=== PATIENT | female | born 1965 | race Caucasian/White ===

== ENCOUNTER 2018-03-19 08:17 | Outpatient (RCR) | payer MEDICAID, SELFPAY | END 2018-04-11 23:59 | LOC: NS 08:17 | PROVIDERS: Family Provider Family Medicine; PCP Family Medicine; Visit Provider Specialist | DX: R69 Illness, unspecified (principal); Z71.3 Dietary counseling and surveillance ==

== ENCOUNTER 2018-07-13 20:42 | Observation (INO) | payer MEDICAID, SELFPAY ==
[2018-07-13 20:43] VITALS: BP 120/62; PULSE 86; RESP 20; TEMP 36.7; O2SAT 93; BMI 41.0
--- NOTE | 2018-07-13 21:03 | EKG12_ITS ---
Test Reason : Blood Pressure : / mmHG Vent. Rate : 080 BPM Atrial Rate : 080 BPM P-R Int : 168 ms QRS Dur : 086 ms QT Int : 366 ms P-R-T Axes : 047 054 038 degrees QTc Int : 422 ms Normal sinus rhythm Possible Left atrial enlargement Low voltage QRS Borderline ECG Confirmed by SARMAD HUYNH, VIBHA ([id number]), news videotape editor WANDY GUTIERREZ ([id number]) on 07/15/2018 1:56:41 PM Referred By: LAWSON Confirmed By:VIBHA BAÑUELOS MD
--- NOTE | 2018-07-13 21:11 | RAD_ITS ---
STUDY: X-RAY CHEST REASON FOR EXAM: Female, 52 years old. Persistent cough, SOB. Recent pneumonia. TECHNIQUE: AP and lateral chest. COMPARISON: 09/18/2016. FINDINGS: There is no pleural effusion. There is hazy opacity in the right lung apex and left upper lobe, consistent with pneumonia. Normal size heart. Normal mediastinum and ezio. Normal visualized pulmonary arteries. Normal visualized aortic arch and descending thoracic aorta. Normal visualized thoracic spine. Normal visualized ribs, clavicles, and shoulders. There is no demonstrated abnormality of the visualized soft tissue structures of the upper abdomen. RAD/Chest PA and Lateral IMPRESSION: Bilateral upper lobe hazy opacities consistent with pneumonia. Electronically Signed: Rain Lipscomb MD at 22:46 EST Tel , Service support ,
[2018-07-13 21:26] VITALS: PULSE 85; RESP 15; TEMP 37.1; O2SAT 91
[2018-07-13 21:28] VITALS: RESP 20
[2018-07-13] MEDS: Albuterol 2.5 MG/3 ML VIAL.NEB. INHALATION ×2 (21:29)
[2018-07-13] MEDS: 0.9% Normal Saline 1,000 ML 150 ML IV (21:29)
[2018-07-13] MEDS: Ipratropium/Albuterol Sulfate 3 ML AMPUL.NEB INHALATION (21:29)
[2018-07-13 21:34] VITALS: O2SAT 93
[2018-07-13 21:39] LABS: Absolute Lymphocyte Count 3.06 X10^3/ul (0.83-4.51); Absolute Neutrophil Count 12.1 X10^3/uL (2.0-7.7); Basophil# 0.07 X10^3/uL; Basophil% 0.4 % (0-1); Eosinophil# 0.35 X10^3/uL; Hematocrit 46.2 % (37-47); Hemoglobin 15.3 g/dl (12.0-15.0); Lymphocyte # 3.06 X10^3/ul (4.0); Lymphocyte % 17.9 % (19-41); Mean Corp Hgb Conc 33.1 g/gl (32-36); Mean Corpuscular Hgb 30.4 pg (27.0-32.0); Mean Corpuscular Volume 91.7 fL (81-99); Mean Platelet Vol. 10.2 fl (6.2-12.0); Monocyte# 1.48 X10^3/uL; Monocyte% 8.6 % (0-10); Neutrophil # 12.12 X10^3/uL (2.7-7.7); Neutrophil % 70.9 % (47-70); POSITIVE COUNT NO; POSITIVE DIFFERENTIAL NO; POSITIVE MORPHOLOGY NO; Platelet Count 309 K/mm3 (150-450); RBC Distribution Width CV 13.9 % (11.6-14.6); RBC Distribution Width SD 46.1 fl (35.1-43.9); Red Blood Count 5.04 M/mm3 (4.2-5.4); White Blood Count 17.1 K/mm3 (4.4-11.0)
[2018-07-13 21:55] LABS: Anion Gap 9 (5-15); BUN 12 mg/dL (7-18); Calcium,Total 9.6 mg/dL (8.5-10.1); Chloride 106 mmol/L (98-107); Creatinine, Serum 1.33 mg/dL (0.55-1.02); EST Glomerular Filtration Rate 45 mL/min (>60); Est Glom Filt Rate - Afr Amer 54 mL/min (>60); Estimated Creatinine Clearance 56.56 ml/min; Glucose 163 mg/dL (74-106); Sodium Level 139 mmol/L (136-145)
--- NOTE | 2018-07-13 22:53 | ED.VISSUMM ---
- ER Visit Summary Date of Service: 07/13/18 Chief Complaint: Cough, shortness of breath History of Present Illness: The patient is a 52 F presents to the emergency department with cough and shortness of breath. The patient has had upper respiratory symptoms for the past 3 weeks. She had seen her primary care in the office. She was diagnosed with bronchitis. She did treatment with doxycycline. She states that since finishing, she is really not felt any better. She is had continued cough. She had exertional dyspnea and lightheadedness. She does smoke and does have history of asthma. She is also had fever and chills. She denies any chest pain. She has had some myalgias and arthralgias. Mother was positive for influenza. Physical Examination: Vital signs reviewed General: Well-nourished, well-developed Head: Normocephalic, atraumatic Eyes: Pupils equal and reactive, extraocular muscles intact Neck, supple, no lymphadenopathy Heart: Regular rate and rhythm Respiratory: No distress, diminished air movement with wheezing throughout Abdomen: Soft, nontender, nondistended, no peritoneal signs Back: Nontender Extremities: Nontender, no edema, no cords Skin: Normal color no rash Neuro: Alert and oriented, no focal or lateralizing deficits Test Results: [] Emergency Department Course and Treatment: The patient was initially hypoxic on arrival. Her pulse ox was 88%. She had diminished air movement. She was given nebulized breathing treatments with some improvement of aeration, but now had significant oxygen requirement of 3 L to keep her pulse ox greater than 92%. Chest x-ray does show bilateral upper lobe infiltrates. She also has a mild leukocytosis of 17,000. Cardiac enzymes are normal. EKG was unremarkable. As the patient has oxygen requirement, has failed outpatient treatment, and has evidence of bilateral pneumonia I do feel that she is going require admission. She was covered with broad-spectrum antibiotics. The patient was discussed with the hospitalist and will be admitted. Treatment Plan: [] Disposition: Admission Impression: 1. Bilateral pneumonia 2. Hypoxia This note was generated with [employer] SERVICESation software. It may contain incorrect words, spelling, and punctuation that were not noted in review of the chart prior to signing ED Disposition - Plan for ED Patient: Chief Complaint: Cough Referrals: Jc Hsu MD [Primary Care Provider] -
--- NOTE | 2018-07-13 23:04 | HP.PCM_ITS ---
Problem List (1) Community acquired pneumonia Status: Acute (2) Cellulitis of leg, right Status: Resolved (3) Total knee replacement status Status: Chronic Qualifiers: Laterality: right Qualified Code(s): Z96.651 - Presence of right artificial knee joint History of Present Illness Date of Admission: 07/13/18 Chief Complaint: shortness of breath The patient is a 52 year old F with a significant history of tobacco abuse asthma; bipolar disorder; diabetes mellitus who presented with 3-week history of persistent shortness of breath. She has shortness of breath at rest. Has shortness of breath increased with mild exertion. Associated with her symptoms is lightheadedness, subjective fever; wheezing and cough. She reports feeling clammy. She had a productive yellow sputum that was light. She denies any sore throat. Further she reports runny nose. About 2 weeks ago she went to PCP who gave her Doxycycline and inhalers. She completed the course of Doxycycline. However her symptoms persisted. At emergency department patient was noted to have leukocytosis with white count of 17.1: She had an elevated creatinine of 1.25. Chest x-ray showed bilateral upper lobe hazy opacities. Her oxygen saturation was 88% on room air. Patient does not use any home oxygen. Reportedly her mother had influenza about a week ago. At emergency department patient was given Solu-Medrol; ceftriaxone and azithromycin. Past Medical History Past Medical History (Chronic Problems): Chronic Problems Total knee replacement status (Chronic) Bipolar disorder (Chronic) Dyslipidemia (Chronic) Primary osteoarthritis of right knee (Chronic) Allergies adhesive tape Allergy (Verified 07/13/18 20:45) blisters mepilex codeine Adverse Reaction (Intermediate, Verified 07/13/18 20:45) Itching acetaminophen [From Vicodin] Adverse Reaction (Verified 07/13/18 20:45) Itching hydrocodone bitartrate [From Vicodin] Adverse Reaction (Verified 07/13/18 20:45) Itching tramadol Adverse Reaction (Verified 07/13/18 20:45) Nausea Home Medications: Ambulatory Orders Medication Instructions Recorded Acetaminophen [Tylenol] 500 - 1,000 mg PO Q6H PRN PRN 04/18/15 Ergocalciferol [Vitamin D] 1,000 unit PO DAILY 04/18/15 Fluoxetine HCl 20 mg PO DAILY 04/18/15 Pravastatin Sodium [Pravachol] 80 mg PO DAILY 04/18/15 Albuterol Inhaler [Ventolin Hfa] 2 puff INHALATION 4X/DAY PRN 04/25/15 Paliperidone [Invega] 9 mg PO QHS 04/25/15 [place] Carbonate [Lithobid] 600 mg PO BID 05/02/15 Fenofibrate [Lofibra] 54 mg PO DAILY 05/09/16 Gabapentin [Neurontin] 800 mg PO BID 05/09/16 Levothyroxine [Synthroid] 75 mcg PO DAILY 05/09/16 Metformin HCl [Metformin HCl ER] 1,000 mg PO DAILY 05/09/16 Chlorpromazine HCl 25 mg PO BID 07/13/18 Losartan Potassium 25 mg PO DAILY 07/13/18 ALPRAZolam [Xanax] 0.5 mg PO 4X/DAY PRN PRN 07/14/18 Benztropine [Cogentin] 1 mg PO BID 07/14/18 Budesonide Aerosol [Pulmicort 0.5 mg INHALATION BID.RT 07/14/18 Respules] Pantoprazole Sodium [Protonix] 20 mg PO DAILY 07/14/18 Surgical History: cholecystectomy, total knee arthroplasty, - - Right ganglion removal: Right hip surgery. 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 Paternal History Items: - - Her father had heart problems and lung cancer. Review of Systems Constitutional: Reports: Chills. Denies: Fever - Subjective, Weight Change HEENT: Reports: Sinus Drainage. Denies: Head Aches Cardiovascular: Denies: Chest Pain, Palpitations Respiratory: Reports: Cough. Denies: Sputum production Gastrointestinal: Denies: Abdominal Pain, Nausea, Vomiting Genitourinary: Denies: Dysuria Musculoskeletal: Denies: Joint Pain, Joint Tenderness Skin: Denies: Rash, Wounds Neurological: Denies: Numbness, Tingling, Focal weakness Psychiatric: Denies: Anxiety, Depression, Homicidal Ideations, Suicidal Ideations Hematologic/ Lymphatic: Denies: Easy Bruising, Easy Bleeding VTE Information - Inpt Only VTE Present on Admission: No VTE Mechan Device Prophylaxis: None VTE Pharm Prophylaxis ordered?: Yes Patient Problems: Active and Suspected Problems Community acquired pneumonia (Acute) - Physical Exam General: Alert, Oriented x3, Cooperative HEENT: Atraumatic, PERRLA, EOMI, Normocephalic Neck: Supple, No JVD, Negative Carotid Bruits Lungs: Wheezes Cardiovascular: Regular rate, No murmurs Abdomen: Bowel Sounds Present, Soft, Non Tender Extremities: No edema, Capillary Refill Less than 3 Seconds Skin: No rashes, No breakdown Musculoskeletal: No Tenderness to Palpation of Joints or Extremities Neurological: Facial Droop, - - Patient with bilateral hand tremors Psych/Mental Status: Normal Affect, Appropriate Vital Signs Temp Pulse Resp BP Pulse Ox 98.7 F 85 20 H 120/62 91 07/13/18 21:26 07/13/18 21:26 07/13/18 21:28 07/13/18 20:43 07/13/18 21:26 Oxygen Delivery Method Room Air Weight: 133.4 kg Body Mass Index (BMI) 41.0 Laboratory Tests Past 24 Hrs 07/13/18 07/13/18 21:25 21:25 WBC 17.1 H RBC 5.04 Hgb 15.3 H Hct 46.2 MCV 91.7 MCH 30.4 MCHC 33.1 RDW 13.9 RDW Differential 46.1 H Plt Count 309 MPV 10.2 Immature Gran % (Auto) 0.200 Neut % (Auto) 70.9 H Lymph % (Auto) 17.9 L [place] % (Auto) 8.6 Eos % (Auto) 2.0 Baso % (Auto) 0.4 Absolute Neuts (auto) 12.1 H Absolute Lymphs (auto) 3.06 Total Counted Not Reportable Sodium 139 Potassium 4.0 Chloride 106 Carbon Dioxide 24.0 Anion Gap 9 BUN 12 Creatinine 1.33 H Estim Creat Clear Calc 56.56 Est GFR (MDRD) Af Amer 54 L Est GFR (MDRD) Non-Af 45 L BUN/Creatinine Ratio 9.0 L Glucose 163 H Calcium 9.6 Troponin I < 0.015 Assessment/Plan All Active Problems Community acquired pneumonia (Acute) Cellulitis of leg, right (Resolved) The patient is a 52 year old F with a significant history of asthma; bipolar disorder; diabetes mellitus who presented with 3-week history of persistent shortness of breath will fill out outpatient treatment with cycling; and noted to have leukocytosis and radiographic evidence of bilateral opacities on x-ray consistent with likely committee acquired pneumonia. Acute hypoxemic respiratory failure secondary to committee acquired pneumonia pneumonia. Blood culture x2 were ordered in the ED. Please follow results. Rapid influenza test was unremarkable. Comprehensive respiratory pathogen panel was ordered. Chest x-ray: Independent review of chest x-ray confirms bilateral opacities. Respiratory Gram stain and culture pending Antibiotics: Patient received ceftriaxone and azithromycin at the ED. Ceftriaxone and azithromycin continued. Patient was started on IV hydration at the emergency department. IV hydration continued. DuoNeb scheduled. Albuterol as needed Legionella antigen screen and Strep antigen ordered Flonase for nasal congestion. Received Solu-Medrol at emergency department. Solu-Medrol continued due to severity of his condition. JAMES Her baseline creatinine is around 0.75 On admission her creatinine was 1.33 Gentle IV hydration with normal saline. BUN over creatinine is 9.0. Likely multifactorial from prerenal secondary to excessive work of breathing from pneumonia; and probably ATN since her BUN over creatinine is less than 20. Avoid nephrotoxic's. Hold losartan Trend BMP. Hypertension On admission her blood pressure was stable. Losartan discontinued because of AK I. Trend blood pressures. Hydralazine PRN ordered. Diabetes mellitus with acute hyperglycemia: On admission blood glucose was 163 which is which is within hospital goal of 140-180. Her blood glucose was in the uncontrolled range. Suspect hyperglycemia secondary to steroids. We will continue home metformin and add a correction scale insulin. Accu-Chek q. before meals at bedtime. History of asthma Steroids and breathing treatment as above. Bipolar Patient was having tremors on examination and reported that it is because of the side effect of lithium. She reports taking Cogentin to counteract the tremors. Cogentin continued. Coral continued. Will check a lithium level. Hypothyroidism Synthroid continued. Depression Prozac continued. DVT prophylaxis Heparin subcutaneous. . Code Visit Inpatient E&M: 74698 Init Hosp L3
[2018-07-13 23:14] VITALS: PULSE 80; RESP 16; TEMP 37.1; O2SAT 93
[2018-07-13] MEDS: Ceftriaxone 1 GM/50 ML BAG IV (23:14)
[2018-07-13 23:21] VITALS: BP 101/45; PULSE 81; RESP 16
[2018-07-13] MEDS: MethylPREDNISolone 125 MG/2 ML Vial IV (23:35)
[2018-07-14 00:11] VITALS: BMI 41.0
[2018-07-14 01:39] VITALS: BP 128/79; PULSE 88; RESP 18; TEMP 36.8; O2SAT 92
[2018-07-14] MEDS: 0.9% Normal Saline 1,000 ML 75 ML IV (01:52)
[2018-07-14 05:47] LABS: Absolute Neutrophil Count 12.8 X10^3/uL (2.0-7.7); Basophil# 0.02 X10^3/uL; Basophil% 0.1 % (0-1); Eosinophil# 0.01 X10^3/uL; Eosinophils% 0.1 % (0-5); Hematocrit 46.1 % (37-47); Hemoglobin 14.9 g/dl (12.0-15.0); Lymphocyte % 7.1 % (19-41); Mean Corp Hgb Conc 32.3 g/gl (32-36); Mean Corpuscular Volume 92.8 fL (81-99); Mean Platelet Vol. 10.2 fl (6.2-12.0); Monocyte# 0.24 X10^3/uL; Monocyte% 1.7 % (0-10); Neutrophil % 90.7 % (47-70); Platelet Count 296 K/mm3 (150-450); RBC Distribution Width CV 13.9 % (11.6-14.6); RBC Distribution Width SD 46.1 fl (35.1-43.9); Red Blood Count 4.97 M/mm3 (4.2-5.4); White Blood Count 14.1 K/mm3 (4.4-11.0)
[2018-07-14] MEDS: Levothyroxine 75 MCG Tablet PO (05:49)
[2018-07-14] MEDS: Heparin Injection (Vial) 5,000 UNIT/ML VIAL 5000 UNIT SC (05:49)
[2018-07-14 05:50] LABS: POSITIVE COUNT NO; POSITIVE DIFFERENTIAL NO; POSITIVE MORPHOLOGY NO
[2018-07-14 06:11] LABS: Anion Gap 13 (5-15); BUN 13 mg/dL (7-18); BUN/Creat Ratio 10.4 RATIO (10-20); Calcium,Total 9.3 mg/dL (8.5-10.1); Chloride 104 mmol/L (98-107); Creatinine, Serum 1.25 mg/dL (0.55-1.02); EST Glomerular Filtration Rate 48 mL/min (>60); Est Glom Filt Rate - Afr Amer 58 mL/min (>60); Estimated Creatinine Clearance 60.18 ml/min; Glucose 348 mg/dL (74-106); Potassium 4.6 mmol/L (3.5-5.1); Sodium Level 137 mmol/L (136-145)
[2018-07-14] MEDS: Ipratropium/Albuterol Sulfate 3 ML AMPUL.NEB INHALATION ×2 (07:16→11:31)
[2018-07-14] MEDS: Budesonide Respules 0.5 MG/2 ML AMPUL.NEB. INHALATION (07:17)
[2018-07-14 07:18] VITALS: PULSE 72; RESP 18; O2SAT 92
[2018-07-14 09:36] VITALS: BP 119/67; PULSE 69; RESP 18; TEMP 36.8; O2SAT 98
[2018-07-14] MEDS: Ceftriaxone 1 GM/50 ML BAG IV (09:39)
[2018-07-14] MEDS: Glucerna Shake 120 ML LIQUID PO ×2 (09:40→14:28)
[2018-07-14] MEDS: Benztropine 2 MG Tablet 1 MG PO (09:41)
[2018-07-14] MEDS: Lithium Carbonate 300mg Capsule 600 MG PO (09:41)
[2018-07-14] MEDS: Fenofibrate 48 MG Tablet PO (09:42)
[2018-07-14] MEDS: FLUoxetine 20 MG Capsule PO (09:42)
[2018-07-14] MEDS: guaiFENesin 1,200 MG Tablet 1200 MG PO (09:42)
[2018-07-14] MEDS: Gabapentin 800 MG Tablet PO (09:42)
[2018-07-14] MEDS: ChlorproMAZINE 25 MG Tablet PO (09:43)
[2018-07-14] MEDS: Pantoprazole Sodium 20 MG Tablet PO (09:47)
[2018-07-14 11:06] VITALS: O2SAT 91
[2018-07-14 11:31] VITALS: PULSE 80; RESP 18; O2SAT 90
--- NOTE | 2018-07-14 11:41 | DCINST_ITS ---
- Discharge Diagnoses Current Active Problems: Current Active and Chronic Problems Community acquired pneumonia (Acute) You will use the following diet at home:: Calorie/Carbohydrate Controlled (specify 1200, 1400, etc) - 1800 calories per day Your food should be the consistency of: Regular Your liquids should be the consistency of: Regular/Thin Discharge Activity: Return to Normal Activity Additional Instructions: Please discontinue use of all nicotine products. Talk to your doctor about assistance with smoking cessation. Allergies/Adverse Reactions: Allergies adhesive tape Allergy (Verified 07/13/18 20:45) blisters mepilex codeine Adverse Reaction (Intermediate, Verified 07/13/18 20:45) Itching acetaminophen [From Vicodin] Adverse Reaction (Verified 07/13/18 20:45) Itching hydrocodone bitartrate [From Vicodin] Adverse Reaction (Verified 07/13/18 20:45) Itching tramadol Adverse Reaction (Verified 07/13/18 20:45) Nausea Medications to take at Discharge Acetaminophen [Tylenol] 500 - 1,000 mg PO Q6H PRN PRN 04/18/15 Ergocalciferol [Vitamin D] 1,000 unit PO DAILY 04/18/15 Fluoxetine HCl 20 mg PO DAILY 04/18/15 Pravastatin Sodium [Pravachol] 80 mg PO DAILY 04/18/15 Albuterol Inhaler [Ventolin Hfa] 2 puff INHALATION 4X/DAY PRN 04/25/15 Paliperidone [Invega] 9 mg PO QHS 04/25/15 [place] Carbonate [Lithobid] 600 mg PO BID 05/02/15 Fenofibrate [Lofibra] 54 mg PO DAILY 05/09/16 Gabapentin [Neurontin] 800 mg PO BID 05/09/16 Levothyroxine [Synthroid] 75 mcg PO DAILY 05/09/16 Metformin HCl [Metformin HCl ER] 1,000 mg PO DAILY 05/09/16 Chlorpromazine HCl 25 mg PO BID 07/13/18 Losartan Potassium 25 mg PO DAILY 07/13/18 ALPRAZolam [Xanax] 0.5 mg PO 4X/DAY PRN PRN 07/14/18 Benztropine [Cogentin] 1 mg PO BID 07/14/18 Budesonide Aerosol [Pulmicort Respules] 0.5 mg INHALATION BID.RT 07/14/18 Pantoprazole Sodium [Protonix] 20 mg PO DAILY 07/14/18 Prednisone See Taper PO DAILY #30 tab.ds.pk 07/14/18 levoFLOXacin tablet [Levaquin tablet] 750 mg PO DAILY #5 tab 07/14/18 The following prescriptions were given: levoFLOXacin tablet [Levaquin tablet] 750 mg PO DAILY #5 tab Prednisone See Taper PO DAILY #30 tab.ds.pk Primary Care Physician: Jc Hsu MD [Primary Care Provider] - Please follow up with your Primary Care Physician in: 1 week Test Results: Test results from this visit will be discussed in further detail at your follow- up appointment, if applicable. Proposed Discharge Date: 07/15/17
[2018-07-14] MEDS: Insulin Lispro 100 UNIT/ML INSULN.PEN SQ (11:58)
[2018-07-14 12:16] LABS: Bedside Glucose 344 mg/dL (70-110)
[2018-07-14 14:25] VITALS: BP 132/67; PULSE 80; RESP 18; TEMP 36.9; O2SAT 93
--- NOTE | 2018-07-14 15:32 | DS.PCM_ITS ---
Discharge Date and Diagnosis - Problem List Patient Problems: Active and Suspected Problems Community acquired pneumonia (Acute) Date of Admission: 07/13/18 Date of Discharge: 07/14/18 - Primary Discharge Diagnosis Active and Suspected Problems Community acquired pneumonia (Acute) JAMES 2/2 pna Tobacco abuse 1/2 ppd Asthma Bipolar HTN DMt2 osteoarthritis HLD - Secondary Discharge Diagnosis Chronic Problems Total knee replacement status (Chronic) Bipolar disorder (Chronic) Dyslipidemia (Chronic) Primary osteoarthritis of right knee (Chronic) Hospital Course and Treatment Imaging Results: RAD/Chest PA and Lateral IMPRESSION: Bilateral upper lobe hazy opacities consistent with pneumonia. Operations: None, - - Right total knee washout, 05/02/2015 Procedures: None Summary of Care Provided: Hospital course: The patient is a 52 year old F past medical history of nicotine abuse who continues to smoke, asthma, bipolar disorder, type 2 diabetes, who presented to the emergency room with chief complaint of shortness of breath worsening over 3 weeks, worse with exertion, with yellow sputum production. She was found to have a high white count at 17,000 and a chest x-ray consistent with bilateral upper lobe pneumonia. She also appeared to have acute kidney injury with a creatinine of 1.33, and a baseline noted to be around 0.75. She had taken a course of doxycycline as an outpatient with no relief. She was admitted to the general medical floor with bilateral pneumonia, community-acquired, and started on Rocephin and azithromycin. She was given IV fluids, and her kidney function began to improve overnight. She initially was given some supplemental oxygen, but was weaned off of it overnight. She was ambulated in the hallway the following morning and maintained saturations of 93% on room air. She felt significantly repacked better and requested to go home. Her white count had significantly improved. She was transitioned to 5 more days of oral Levaquin and discharged home in stable condition. She should follow-up with her PCP in 1-2 weeks. This patient was seen by Jd Longo PA-C under the supervision of Doctor Hall. [] Patient Problems: Active and Suspected Problems Community acquired pneumonia (Acute) - Physical Exam General: Alert, Oriented x3, Cooperative HEENT: Atraumatic, PERRLA, EOMI, Normocephalic Neck: Supple, No JVD, Negative Carotid Bruits Lungs: Diminished, Rales Cardiovascular: Regular rate, No murmurs Abdomen: Bowel Sounds Present, Soft, Non Tender Extremities: No edema, Capillary Refill Less than 3 Seconds Skin: No rashes, No breakdown Musculoskeletal: No Tenderness to Palpation of Joints or Extremities Neurological: Cranial nerves II-XII grossly intact Psych/Mental Status: Anxious, Alert and oriented to time, place, person, mood and affect Vital Signs Temp Pulse Resp BP Pulse Ox 98.4 F 80 18 132/67 H 93 07/14/18 14:25 07/14/18 14:25 07/14/18 14:25 07/14/18 14:25 07/14/18 14:25 Oxygen Flow Rate (L/min) 3 Oxygen Delivery Method Room Air Weight: 294 lb 1.546 oz Body Mass Index (BMI) 41.0 Intake and Output for Last 24 Hours 07/12/18 07/13/18 07/14/18 23:59 23:59 23:59 Intake Total 1263 / 1263 Balance 1263 / 1263 Microbiology Past 72 Hours 07/14/18 04:45 Legionella Antigen - Final Urine, Random Streptococcus pneumoniae Antigen (M - Final 07/13/18 22:55 Influenza Types A,B Direct FA (ANNA) - Final Mucosa - Nose Laboratory Tests Past 24 Hrs 07/13/18 07/13/18 07/14/18 21:25 21:25 05:20 WBC 17.1 H RBC 5.04 Hgb 15.3 H Hct 46.2 MCV 91.7 MCH 30.4 MCHC 33.1 RDW 13.9 RDW Differential 46.1 H Plt Count 309 MPV 10.2 Immature Gran % (Auto) 0.200 Neut % (Auto) 70.9 H Lymph % (Auto) 17.9 L [place] % (Auto) 8.6 Eos % (Auto) 2.0 Baso % (Auto) 0.4 Absolute Neuts (auto) 12.1 H Absolute Lymphs (auto) 3.06 Total Counted Not Reportable Sodium 139 Potassium 4.0 Chloride 106 Carbon Dioxide 24.0 Anion Gap 9 BUN 12 Creatinine 1.33 H Estim Creat Clear Calc 56.56 Est GFR (MDRD) Af Amer 54 L Est GFR (MDRD) Non-Af 45 L BUN/Creatinine Ratio 9.0 L Glucose 163 H Calcium 9.6 Troponin I < 0.015 [place] 0.40 L 07/14/18 07/14/18 05:20 05:20 WBC 14.1 H RBC 4.97 Hgb 14.9 Hct 46.1 MCV 92.8 MCH 30.0 MCHC 32.3 RDW 13.9 RDW Differential 46.1 H Plt Count 296 MPV 10.2 Immature Gran % (Auto) 0.300 Neut % (Auto) 90.7 H Lymph % (Auto) 7.1 L [place] % (Auto) 1.7 Eos % (Auto) 0.1 Baso % (Auto) 0.1 Absolute Neuts (auto) 12.8 H Absolute Lymphs (auto) 1.00 Total Counted Not Reportable Sodium 137 Potassium 4.6 Chloride 104 Carbon Dioxide 20.0 L Anion Gap 13 BUN 13 Creatinine 1.25 H Estim Creat Clear Calc 60.18 Est GFR (MDRD) Af Amer 58 L Est GFR (MDRD) Non-Af 48 L BUN/Creatinine Ratio 10.4 Glucose 348 H Calcium 9.3 Troponin I Bertha POC Glucose 07/14/18 11:53 POC Glucose 344 H Discharge Diet: Low fat/ Low Cholesterol, 1800 Calorie Control Diet, 2000 mg Sodium Diet Discharge Activity: Return to Normal Activity Home Medications: Medications to take at Discharge Acetaminophen [Tylenol] 500 - 1,000 mg PO Q6H PRN PRN 04/18/15 Ergocalciferol [Vitamin D] 1,000 unit PO DAILY 04/18/15 Fluoxetine HCl 20 mg PO DAILY 04/18/15 Pravastatin Sodium [Pravachol] 80 mg PO DAILY 04/18/15 Albuterol Inhaler [Ventolin Hfa] 2 puff INHALATION 4X/DAY PRN 04/25/15 Paliperidone [Invega] 9 mg PO QHS 04/25/15 [place] Carbonate [Lithobid] 600 mg PO BID 05/02/15 Fenofibrate [Lofibra] 54 mg PO DAILY 05/09/16 Gabapentin [Neurontin] 800 mg PO BID 05/09/16 Levothyroxine [Synthroid] 75 mcg PO DAILY 05/09/16 Metformin HCl [Metformin HCl ER] 1,000 mg PO DAILY 05/09/16 Chlorpromazine HCl 25 mg PO BID 07/13/18 Losartan Potassium 25 mg PO DAILY 07/13/18 ALPRAZolam [Xanax] 0.5 mg PO 4X/DAY PRN PRN 07/14/18 Benztropine [Cogentin] 1 mg PO BID 07/14/18 Budesonide Aerosol [Pulmicort Respules] 0.5 mg INHALATION BID.RT 07/14/18 Pantoprazole Sodium [Protonix] 20 mg PO DAILY 07/14/18 Prednisone See Taper PO DAILY #30 tab.ds.pk 07/14/18 levoFLOXacin tablet [Levaquin tablet] 750 mg PO DAILY #5 tab 07/14/18 Following Prescrptions Were Given to Patient: levoFLOXacin tablet [Levaquin tablet] 750 mg PO DAILY #5 tab Prednisone See Taper PO DAILY #30 tab.ds.pk Primary Care Physician: Jc Hsu MD [Primary Care Provider] - Please follow up with your Primary Care Physician in: 1 week Medical Necessity - Tobacco Use Smoking Status: Current every day smoker Tobacco Use: Cigarettes Meaningful Use Info Meaningful Use Diagnoses (Choose all that apply): None applicable
== END 2018-07-14 15:44 | disposition home or self-care (01) ==
LOC: ED 21:49 → MS3 23:55
PROVIDERS: Admitting Provider Hospitalist; Emergency Provider Emergency Medicine; Family Provider Family Medicine; PCP Family Medicine; Visit Provider Internal Medicine
DX: J18.9 Pneumonia, unspecified organism (principal); N17.9 Acute kidney failure, unspecified; F31.9 Bipolar disorder, unspecified; E78.5 Hyperlipidemia, unspecified; M17.11 Unilateral primary osteoarthritis, right knee; Z79.899 Other long term (current) drug therapy; Z79.51 Long term (current) use of inhaled steroids; Z79.84 Long term (current) use of oral hypoglycemic drugs; J45.909 Unspecified asthma, uncomplicated; F17.210 Nicotine dependence, cigarettes, uncomplicated; J96.01 Acute respiratory failure with hypoxia; I10 Essential (primary) hypertension; E11.65 Type 2 diabetes mellitus with hyperglycemia; E03.9 Hypothyroidism, unspecified
CPT/HCPCS: 36415; 71046; 80048; 80178; 82962; 84484; 85025; 87040; 87449; 87633; 87804; 93005; 94640; 94667; 96361; 96365; 96366; 96367; 96375; 99218; 99283; 99406; J7030; A4216; G0378

== ENCOUNTER → 2019-11-08 15:57 | Outpatient (CLI) | payer MEDICAID, OTHER, SELFPAY ==
[2018-07-14 00:11] VITALS: BMI 41.0
[2019-11-09 09:30] LABS: Creatinine, Serum 0.92 mg/dL (0.55-1.02); EST Glomerular Filtration Rate 68 mL/min (>60); Est Glom Filt Rate - Afr Amer 82 mL/min (>60)
== END ==
PROVIDERS: PCP Family Medicine; Referring Provider Psychiatry & Neurology Psychiatry; Visit Provider Psychiatry & Neurology Psychiatry
DX: Z79.899 Other long term (current) drug therapy (principal)
CPT/HCPCS: 36415; 80178; 82565; 82570; 84443

== ENCOUNTER 2022-12-22 15:30 | Emergency (ER) | payer MEDICARE, MEDICAID, OTHER, SELFPAY ==
[2022-12-22 15:31] VITALS: BP 125/75; PULSE 82; RESP 13; TEMP 36.8; O2SAT 95; BMI 27.1
--- NOTE | 2022-12-22 15:49 | EKG12_ITS ---
Test Reason : NEUROSYM Blood Pressure : / mmHG Vent. Rate : 084 BPM Atrial Rate : 084 BPM P-R Int : 146 ms QRS Dur : 082 ms QT Int : 376 ms P-R-T Axes : 026 050 031 degrees QTc Int : 444 ms Normal sinus rhythm Normal ECG Confirmed by RIAT HUYNH, JON ([id number]), advertising editor LUIZ HERNÁNDEZ ([id number]) on 12/24/2022 11:24:45 AM Referred By: Confirmed By:JON SALINAS MD
--- NOTE | 2022-12-22 15:51 | EX.ED.DYSGE1 ---
HPI History of Present Illness Chief Complaint: Syncope Narrative Narrative: Patient presents after syncopal episode she tried to get up and was quite lightheaded and then passed out. She did not have any chest pain or shortness of breath. She has no urinary symptoms. No head injury. No recent fevers or chills. She has chronic dyspnea secondary to her COPD. This is unchanged. She does say that she has had decreased p.o. intake recently because she did not feel hungry. She does not have abdominal pain nausea vomiting or diarrhea. No back pain or tearing sensation. No lower extremity edema or calf pain. [facility] Medical History (Updated 12/22/22 @ 17:[address] Andrea Zee MD) CHF (congestive heart failure) COPD (chronic obstructive pulmonary disease) Diabetes TIA (transient ischemic attack) Home Medications acetaminophen 500 mg tablet 500 - 1,000 mg PO Q6H PRN PRN Pain 04/18/15 [History Last Taken 07/13/18 08:00 1000 mg] ergocalciferol (vitamin D2) 1,250 mcg (50,000 unit) capsule (Vitamin D2) 1,000 unit PO DAILY supplement 04/18/15 [History Last Taken 07/13/18 08:00 1000 mg] fluoxetine 20 mg tablet 20 mg PO DAILY mood disorder 04/18/15 [History Last Taken 07/13/18 08:00 20 mg] pravastatin 10 mg tablet 80 mg PO DAILY cholesterol 04/18/15 [History Last Taken 07/13/18 08:00 80 mg] albuterol sulfate 90 mcg/actuation aerosol inhaler (Ventolin HFA) 2 puff inhalation 4X/DAY PRN Wheezing 04/25/15 [History Last Taken 07/13/18 09:00 2 puffs] paliperidone 3 mg tablet,extended release 24 hr (Invega) 9 mg PO QHS bi-polar 04/25/15 [History Last Taken 07/12/18 22:00 9 mg] lithium carbonate 300 mg tablet,extended release 600 mg PO BID bi-polar 05/02/15 [History Last Taken 07/13/18 08:00 600 mg] fenofibrate 54 mg tablet (Lofibra) 54 mg PO DAILY cholesterol 05/09/16 [History Last Taken 07/13/18 08:00 54 mg] gabapentin 800 mg tablet 800 mg PO BID neuropathy 05/09/16 [History Last Taken 07/13/18 08:00 800 mg] levothyroxine 50 mcg tablet 75 mcg PO DAILY thyroid 05/09/16 [History Last Taken 07/13/18 06:00 75 mcg] metformin 500 mg 24 hr tablet,extended release 1,000 mg PO DAILY dm 05/09/16 [History Last Taken 07/13/18 08:00 1000 mg] chlorpromazine 10 mg tablet 25 mg PO BID bi-polar 07/13/18 [History Last Taken 07/13/18 08:00 25 mg] losartan 25 mg tablet 25 mg PO DAILY bp 07/13/18 [History Last Taken 07/13/18 08:00 25 mg] alprazolam 0.5 mg tablet 0.5 mg PO 4X/DAY PRN PRN Anxiety 07/14/18 [History Last Taken 07/13/18 17:00 0.5mg] benztropine 2 mg tablet 1 mg PO BID tremors 07/14/18 [History Last Taken 07/13/18 08:00 1 mg] budesonide 0.5 mg/2 mL suspension for nebulization 0.5 mg inhalation BID.RT breathing 07/14/18 [History Last Taken 07/13/18 12:00 1 tx] levofloxacin 750 mg tablet 750 mg PO DAILY #5 tabs 07/14/18 [Rx Last Taken Unknown] pantoprazole 20 mg tablet,delayed release 20 mg PO DAILY gerd 07/14/18 [History Last Taken 07/13/18 08:00 20 mg] prednisone 10 mg tablets in a dose pack See Taper PO DAILY ##30 07/14/18 [Rx Last Taken Unknown] Allergy/AdvReac Type Severity Reaction Status Date / Time adhesive tape Allergy blisters Verified 12/22/22 15:38 codeine AdvReac Intermediate Itching Verified 12/22/22 15:38 acetaminophen [From Vicodin] AdvReac Itching Verified 12/22/22 15:38 hydrocodone bitartrate AdvReac Itching Verified 12/22/22 15:38 [From Vicodin] tramadol AdvReac Nausea Verified 12/22/22 15:38 Surgical History (Updated 12/22/22 @ 15:40 by Alecia Bell) History of bilateral knee replacement History of cholecystectomy History of hysterectomy Social History Smoking Status: Current every day smoker tobacco type: cigarettes ROS ROS ED ROS Narrative Past medical history: Reviewed Medications: Reviewed Social history: Noncontributory Review of systems: All systems negative except as indicated General: No fever. Syncope as in HPI Eyes: No visual changes ENT: No upper airway congestion, normal voice Neck: No neck pain Cardiovascular: No chest pain Respiratory: Chronic dyspnea no change in cough Gastrointestinal: No abdominal pain, nausea vomiting or diarrhea Genitourinary: No dysuria Musculoskeletal: Denies myalgias no difficulty with ambulation Skin: No rash Neurological: No memory loss, confusion or any focal weakness Psych: No recent behavioral changes Hematologic: No easy bleeding or easy bruising EXAM Physical Exam Narrative Exam Narrative: Physical exam General: She appears comfortable she does not appear in any distress Head: Normocephalic, Atraumatic Eyes: Conjunctiva not pale ENT: Dry mucous membranes Neck: Supple, Nontender, No lymphadenopathy Cardiovascular: Regular rate, Regular rhythm. No murmur Respiratory: No distress, coarse breath sounds bilaterally no obvious wheezing at this time. Abdomen: Soft, Nontender, Nondistended Back: Nontender, Normal Inspection. Negative for: CVA tenderness Extremities: Nontender, No edema Skin: Normal color, No rash Neurological: Alert, Normal Strength, Normal Sensation Const Vital Signs: 12/22/22 15:31 12/22/22 15:40 Temperature 98.2 F Temperature Source Oral Pulse Rate 82 Respiratory Rate 13 Respiratory Effort Normal Non-Labored Respiratory Pattern Normal Blood Pressure 125/75 H Blood Pressure Mean 91 Pulse Ox 95 Oxygen Delivery Method Room Air MDM MDM MDM Narrative Medical decision making narrative: Independent interpretation: Sinus rhythm with a rate in the 80s without ectopy on the monitor. I talked to EMS who gave me some history. Patient had an unremarkable work-up she has chronic leukocytosis which is relatively unchanged. She improved with IV fluids. At this time there is no evidence of any arrhythmia she has no chest pain. No thromboembolic risk factors or signs or symptoms. EKG does not show any risks for sudden arrhythmias. I believe her syncope was either vasovagal or dehydration or both. She appears well, she wants to be discharged which is quite reasonable. I will discharge her. However I do want her to see cardiology I will refer she may need an outpatient echocardiogram. If anything changes she is to return she understands this. At this time we talked about admission she would prefer not to be admitted, I do not believe she needs criteria. Lab Data Labs: Laboratory Results - last 24 hr 12/22/22 12/22/22 12/22/22 15:55 15:55 16:34 WBC 15.2 H RBC 5.39 Hgb 16.3 H Hct 47.2 H MCV 87.6 MCH 30.2 MCHC 34.5 RDW Std Deviation 40.5 RDW Coeff of Yesi 12.7 Plt Count 325 MPV 9.9 Immature Gran % (Auto) 0.300 Neut % (Auto) 50.8 Lymph % (Auto) 39.3 [place] % (Auto) 7.0 Eos % (Auto) 2.1 Baso % (Auto) 0.5 Absolute Neuts (auto) 7.8 H Absolute Lymphs (auto) 5.98 H Nucleated RBC % 0 Differential Comment SCANNED Sodium 136 Potassium 4.6 Chloride 105 Carbon Dioxide 25.0 Anion Gap 6 BUN 13 Creatinine 0.98 Estim Creat Clear Calc 72.50 Est GFR (MDRD) Af Amer 76 Est GFR (MDRD) Non-Af 62 BUN/Creatinine Ratio 13.2 Glucose 176 H Calcium 9.2 Total Bilirubin 0.40 AST 34 ALT 37 Alkaline Phosphatase 94 Troponin I High Sens 4 Total Protein 7.3 Albumin 3.5 Globulin 3.8 Albumin/Globulin Ratio 0.9 Lipase 48 Urine Color Yellow Urine Clarity Clear Urine pH 6.5 Ur Specific [employer] 1.015 Urine Protein Negative Urine Glucose (UA) Normal Urine Ketones Negative Urine Occult Blood Negative Urine Nitrite Negative Urine Bilirubin Negative Urine Urobilinogen Normal Ur Leukocyte Esterase Negative Urine RBC 0 SEEN Urine WBC 0 SEEN Ur Squamous Epith Cells 0-5 SEEN Urine Bacteria 0 SEEN Urine Mucus 0 SEEN Radiography Diagnostic Testing: Clinical Impression(s) from Imaging Studies Chest X-Ray 12/22/22 16:04 IMPRESSION: Normal x-ray examination of the chest. Electronically Signed: Silvestre Malhotra MD at 16:21 EDT , EKG Initial EKG: Comments: Sinus rhythm with a rate of 84. Normal NM and QTc intervals. No ischemic changes. Normal EKG. No evidence of Brugada or LVH or WPW. Interpreted by emergency doctor Discharge Plan Triage Chief Complaint: Syncope ED Provider: Andrea Zee Dx/Rx/DC Orders Clinical Impression: Acute dehydration, Syncope Instructions: Causes of Syncope, Dehydration Prescriptions: No Action acetaminophen 500 MG tablet 500 - 1,000 mg PO Q6H PRN PRN (Reason: Pain) Label Comments: PAIN/FEVER pravastatin 10 MG tablet 80 mg PO DAILY Label Comments: CHOLESTEROL fluoxetine 20 MG tablet 20 mg PO DAILY Label Comments: DEPRESSION ergocalciferol (vitamin D2) [Vitamin D2] 50,000 UNIT capsule 1,000 unit PO DAILY Label Comments: SUPPLEMENT paliperidone [Invega] 3 MG tablet 9 mg PO QHS Label Comments: PSYCH MED albuterol sulfate [Ventolin HFA] 1 INHALER inhaler 2 puff inhalation 4X/DAY PRN (Reason: Wheezing) Label Comments: ASTHMA lithium carbonate 300 MG tablet 600 mg PO BID metformin 500 MG tablet,ER jody.retention 24 hr 1,000 mg PO DAILY levothyroxine 50 MCG tablet 75 mcg PO DAILY gabapentin 800 MG tablet 800 mg PO BID fenofibrate [Lofibra] 54 MG tablet 54 mg PO DAILY chlorpromazine 10 MG tablet 25 mg PO BID losartan 25 MG tablet 25 mg PO DAILY benztropine 2 MG tablet 1 mg PO BID pantoprazole 20 MG tablet 20 mg PO DAILY alprazolam 0.5 MG tablet 0.5 mg PO 4X/DAY PRN PRN (Reason: Anxiety) Rx Instructions: Pt takes 2 at bedtime budesonide 0.5 MG/2 ML suspension for nebulization 0.5 mg inhalation BID.RT levofloxacin 750 MG tablet 750 mg PO DAILY Qty: 5 0RF Rx Instructions: start AM 07/15/2017 prednisone 10 MG tablets,dose pack See Taper PO DAILY Qty: 30 0RF Taper: Prednisone Taper 40 mg DAILY@0800 for 3 Days and 0 Hour 30 mg DAILY@0800 for 3 Days and 0 Hour 20 mg DAILY@0800 for 3 Days and 0 Hour 10 mg DAILY@0800 for 3 Days and 0 Hour Rx Instructions: start AM 07/15/2018 Primary Care Provider: Jc Hsu Referrals: Jc Hsu MD [Primary Care Provider] - 3-5 Days Disposition Disposition: Home, Self Care
--- NOTE | 2022-12-22 16:04 | RAD_ITS ---
STUDY: X-RAY CHEST REASON FOR EXAM: Female, 57 years old. sob TECHNIQUE: Single AP portable view of the chest. COMPARISON: 07/13/2018 FINDINGS: The lungs are clear and expanded. There is no demonstrated pleural abnormality. Normal size heart. Normal mediastinum and ezio. Normal visualized pulmonary arteries. Normal visualized aortic arch and descending thoracic aorta. Normal visualized thoracic spine. Normal visualized ribs, clavicles, and shoulders. There is no demonstrated abnormality of the visualized soft tissue structures of the upper abdomen. RAD/Chest 1 View (Portable) IMPRESSION: Normal x-ray examination of the chest. Electronically Signed: Silvestre Malhotra MD at 16:21 EDT ,
[2022-12-22 16:11] LABS: Absolute Lymphocyte Count 5.98 X10^3/uL (0.83-4.51); Absolute Neutrophil Count 7.8 X10^3/uL (2.0-7.7); Basophil# 0.07 X10^3/uL; Basophil% 0.5 % (0-1); Eosinophil# 0.32 X10^3/uL; Eosinophils% 2.1 % (0-5); Hematocrit 47.2 % (37-47); Hemoglobin 16.3 g/dL (12.0-15.0); Lymphocyte # 5.98 X10^3/ul (0.83-4.51); Lymphocyte % 39.3 % (19-41); Mean Corp Hgb Conc 34.5 g/dL (32-36); Mean Corpuscular Hgb 30.2 pg (27.0-32.0); Mean Corpuscular Volume 87.6 fL (81-99); Mean Platelet Vol. 9.9 fl (6.2-12.0); Monocyte# 1.07 X10^3/uL; NRBC Flagged by Analyzer 0 % (0-5); Neutrophil # 7.75 X10^3/uL (2.7-7.7); Neutrophil % 50.8 % (47-70); POSITIVE DIFFERENTIAL YES; Platelet Count 325 K/mm3 (150-450); RBC Distribution Width CV 12.7 % (11.6-14.6); RBC Distribution Width SD 40.5 fl (35.1-43.9); Red Blood Count 5.39 M/mm3 (4.2-5.4); White Blood Count 15.2 K/mm3 (4.4-11.0)
[2022-12-22 16:17] LABS: Differential Indicated SCAN CRITERIA MET
[2022-12-22 16:29] LABS: ALB/GLOB Ratio 0.9 RATIO (0.9-2.4); AST(SGOT) 34 U/L (15-37); Alanine Aminotransfer ALT/SGPT 37 U/L (13-56); Albumin, Serum 3.5 g/dL (3.2-5.0); Alkaline Phosphatase 94 U/L (45-117); Anion Gap 6 (5-15); BUN 13 mg/dL (7-18); BUN/Creat Ratio 13.2 RATIO (10-20); Calcium,Total 9.2 mg/dL (8.5-10.1); Chloride 105 mmol/L (98-107); Creatinine, Serum 0.98 mg/dL (0.55-1.02); EST Glomerular Filtration Rate 62 mL/min (>60); Est Glom Filt Rate - Afr Amer 76 mL/min (>60); Globulin 3.8 g/dL (2.2-4.2); Glucose 176 mg/dL (74-106); Lipase 48 U/L (13-75); Potassium 4.6 mmol/L (3.5-5.1); Protein, Total 7.3 g/dL (6.4-8.2); Sodium Level 136 mmol/L (136-145); Troponin-I HS (w/2H Reflex) 4 pg/mL (3.0-54.0)
[2022-12-22 16:41] LABS: Bacteria 0 SEEN /hpf (None Seen); Mucous, Urine 0 SEEN /hpf (<or=2+); Red Blood Cells-Urine 0 SEEN /hpf (0-5); White Blood Cells 0 SEEN /hpf (0-5)
[2022-12-22 16:45] LABS: Color, Urine Yellow (Yellow); Glucose, Dipstick Normal (Normal); Ketone-Dipstick Negative (Negative); Leukocyte Esterase-Dipstick Negative /ul (Negative); Nitrite-Dipstick Negative (Negative); Occult Blood-Urine Negative /ul (Negative); Protein-Dipstick Negative (Negative); Specific Gravity, Urine 1.015 (1.002-1.030); Urine Bilirubin Dipstick Negative (Negative); Urine Clarity Clear (Clear); Urine Urobilinogen Normal (Normal); Urine pH 6.5 (5.0 - 8.0)
[2022-12-22 16:51] LABS: Squamous Epithelial Cells - UA 0-5 SEEN /hpf (5-10)
[2022-12-22 17:16] LABS: Differential Comment SCANNED
[2022-12-22 17:47] VITALS: BP 110/58; PULSE 80; RESP 14; O2SAT 92
[2022-12-22 18:06] LABS: Reflex Troponin-HS? (from REC) Y
== END 2022-12-22 17:54 | disposition home or self-care (01) ==
PROVIDERS: Emergency Provider Emergency Medicine; PCP Family Medicine; Visit Provider Emergency Medicine
DX: E86.0 Dehydration (principal); J44.9 Chronic obstructive pulmonary disease, unspecified; I50.9 Heart failure, unspecified; E11.9 Type 2 diabetes mellitus without complications; R55 Syncope and collapse; F17.210 Nicotine dependence, cigarettes, uncomplicated; Z86.73 Personal history of transient ischemic attack (TIA), and cerebral infarction without residual deficits; Z79.899 Other long term (current) drug therapy; Z79.84 Long term (current) use of oral hypoglycemic drugs; Z90.710 Acquired absence of both cervix and uterus; Z90.49 Acquired absence of other specified parts of digestive tract; Z96.653 Presence of artificial knee joint, bilateral
CPT/HCPCS: 71045; 80053; 81001; 83690; 84484; 85025; 93005; 96360; 99285; J7040; A4216

== ENCOUNTER 2025-05-31 21:59 | Emergency (ER) | payer MEDICARE, MEDICAID, OTHER, SELFPAY ==
[2025-05-31 22:00] VITALS: BP 127/61; PULSE 78; RESP 22; TEMP 36.6; O2SAT 98; BMI 42.9
--- NOTE | 2025-05-31 22:12 | CT_ITS ---
PROCEDURE: ABDOMEN/PELVIS W IV CONT ONLY 06/01/2025 REASON FOR EXAM: LEFT SIDED ABDOMINAL PAIN TECHNIQUE: Procedure Code: [id number] Modality: CT Procedure: ABDOMEN/PELVIS W IV CONT ONLY Coronal and Sagittal reconstruction series were provided. CONTRAST: isovue 370 VOLUME: 100 mL One or more dose reduction techniques were used (e.g., Automated exposure control, adjustment of the mA and/or kV according to patient size, use of iterative reconstruction technique. RADIATION DOSE SUMMARY: CTDI Vol 13.71 mGy DLP :713.64 mGycm COMPARISON: none FINDINGS: Enlarged liver showing fatty changes with hypodense areas of more focal fatty changes and hyperdense areas of focal fatty sparing. No dilated intra or extra-hepatic biliary tracts. Cholecystectomy clips. Normal appearance of the pancreas with clear surrounding fat planes. The spleen, adrenal glands and IVC are unremarkable. Vascular atheromatous calcifications. Non visualized left kidney. The right kidney is of average size and showing rather preserved parenchymal thickness. No renal calculi. No hydronephrosis. Renal hypodense cortical cyst is noted. Distension of the urinary bladder showing no obvious masses. No obvious masses related to the pelvic viscera. The appendix appears unremarkable. No right iliac inflammatory changes. Colonic fecal loading. The small bowel loops are unremarkable. The stomach is unremarkable. No ascites or free air. No obvious pathologically enlarged lymph nodes. Scanned osseous structures show no osseous destruction. Thoracolumbar spondylosis. Scanned lung bases show basal atelectatic changes. CT/Abdomen/Pelvis W IV Cont ONLY IMPRESSION: Fatty hepatomegaly. No acute pelvi-abdominal abnormalities, collections or free air. Reading [facility] [id number]
--- NOTE | 2025-05-31 22:45 | EX.ED.DYSGE1 ---
HPI History of Present Illness Chief Complaint: Abd Pain Narrative Narrative: Patient is a 59-year-old female presenting to the emergency department for multiple complaints including left-sided chest pain that is now resolved, left-sided abdominal pain and pain in her upper extremities that is intermittent and not present on arrival. Patient has a past medical history of TIA, COPD, kidney cancer s/p nephrectomy and CHF. She is in remission, no current radiation or chemo. Has a right upper chest port. Patient states that the symptoms started a few hours ago and started in her chest on the left side and radiates down to her left sided abdomen one time. No chest pain at time of evaluation. Does not describe the pain as ripping or tearing. She reports she has had the same symptoms on her right side previously. She reports mild SOB. Denies fever, chills, nausea, vomiting, back pain, weakness or numbness in her extremities. Denies diarrhea, constipation, dysuria or hematuria. [facility] Medical History COPD (chronic obstructive pulmonary disease) Diabetes CHF (congestive heart failure) TIA (transient ischemic attack) Home Medications Medication Instructions Recorded Last Taken Type acetaminophen 500 mg tablet 500 - 1,000 mg PO Q6H PRN PRN Pain 04/18/15 07/13/18 08:00 History 1000 mg ergocalciferol (vitamin D2) 1,250 1,000 unit PO DAILY supplement 04/18/15 07/13/18 08:00 History mcg (50,000 unit) capsule (Vitamin 1000 mg D2) fluoxetine 20 mg tablet 20 mg PO DAILY mood disorder 04/18/15 07/13/18 08:00 History 20 mg pravastatin 10 mg tablet 80 mg PO DAILY cholesterol 04/18/15 07/13/18 08:00 History 80 mg albuterol sulfate 90 mcg/actuation 2 puff inhalation 4X/DAY PRN 04/25/15 07/13/18 09:00 History aerosol inhaler (Ventolin HFA) Wheezing 2 puffs paliperidone 3 mg tablet,extended 9 mg PO QHS bi-polar 04/25/15 07/12/18 22:00 History release 24 hr (Invega) 9 mg fenofibrate 54 mg tablet (Lofibra) 54 mg PO DAILY cholesterol 05/09/16 07/13/18 08:00 History 54 mg levothyroxine 50 mcg tablet 75 mcg PO DAILY thyroid 05/09/16 07/13/18 06:00 History 75 mcg metformin 500 mg 24 hr 1,000 mg PO DAILY dm 05/09/16 07/13/18 08:00 History tablet,extended release (gastric 1000 mg retention) chlorpromazine 10 mg tablet 25 mg PO BID bi-polar 07/13/18 07/13/18 08:00 History 25 mg losartan 25 mg tablet 25 mg PO DAILY bp 07/13/18 07/13/18 08:00 History 25 mg alprazolam 0.5 mg tablet 0.5 mg PO 4X/DAY PRN PRN Anxiety 07/14/18 07/13/18 17:00 History 0.5mg benztropine 2 mg tablet 1 mg PO BID tremors 07/14/18 07/13/18 08:00 History 1 mg budesonide 0.5 mg/2 mL suspension 0.5 mg inhalation BID.RT breathing 07/14/18 07/13/18 12:00 History for nebulization 1 tx pantoprazole 20 mg tablet,delayed 20 mg PO DAILY gerd 07/14/18 07/13/18 08:00 History release 20 mg prednisone 10 mg tablets in a dose See Taper PO DAILY ##30 07/14/18 Unknown Rx pack Allergy/AdvReac Type Severity Reaction Status Date / Time adhesive tape Allergy blisters Verified 05/31/25 22:00 codeine AdvReac Intermediate Itching Verified 05/31/25 22:00 acetaminophen (From Vicodin) AdvReac Itching Verified 05/31/25 22:00 hydrocodone bitartrate (From AdvReac Itching Verified 05/31/25 22:00 Vicodin) tramadol AdvReac Nausea Verified 05/31/25 22:00 Surgical History History of hysterectomy History of cholecystectomy History of bilateral knee replacement Social History Smoking Status: Current every day smoker tobacco type: cigarettes ROS ROS ED ROS Narrative See HPI EXAM Physical Exam Narrative Exam Narrative: Vital signs: Reviewed General: Alert and oriented x 3. No acute distress HEENT: Head is normocephalic and atraumatic, sinuses nontender, pupils equal round and reactive. Nares are patent. Oropharynx and throat exams normal. Neck: Supple without lymphadenopathy nontender Cardiovascular: Regular rate and rhythm, no murmurs. No rubs or gallops. Normal S1 and S2. Bilateral radial pulses intact and symmetric throughout. Respiratory: Clear to auscultation bilaterally. No wheezes, rales, rhonchi Abdominal: Soft and very mildly tender to palpation in the LLQ. Normal bowel sounds. No guarding or rebound. Nonsurgical abdomen Extremities: No lower extremity edema. No tenderness. No bruising. Normal range of motion. Normal sensation. Skin: No rash or redness. Neurological: Cranial nerves II through XII are grossly intact. Normal strength and sensation. Normal cerebellar function The rest of the physical exam is unremarkable Const Vital Signs: 05/31/25 22:00 06/01/25 00:00 Temperature 97.8 F Temperature Source Oral Pulse Rate 78 Respiratory Rate 22 H Blood Pressure 127/61 H 94/64 Blood Pressure Mean 83 72 Pulse Ox 98 98 Oxygen Delivery Method Room Air MDM MDM MDM Narrative Medical decision making narrative: Patient is a 59-year-old female presenting to the emergency department for multiple complaints that can be seen in the HPI. Patient was seen. Vitals are stable. Patient resting in bed comfortably no acute distress. EKG shows rhythm with no ischemic changes. No dysrhythmia. Differential includes but is not limited to: ACS, pneumonia, colitis, diverticulitis, musculoskeletal, electrolyte disturbance. I doubt aortic dissection or aneurysm causing the pain as she is nontachycardic has no hypertension, is well-appearing, had no ripping or tearing pain. Has equal and symmetric pulses throughout. She has no current chest pain and no pain in her arms. She states she has had similar symptoms on the opposite side has very mild tenderness to palpation on the left lower quadrant. CBC with a mild leukocytosis of 14, however on chart review it appears that she always has a mild leukocytosis that is not significantly changed from baseline. Hemoglobin within normal limits. CMP with mild hyponatremia which has been present in the past at 132. Mild JAMES with a BUN of 22 and creatinine 1.51. Liver enzymes within normal limits, alk phos is very mildly elevated outside the normal range at 109. Lipase within normal limits. Troponin within normal limits. Chest x-ray reviewed myself, no opacities, pneumothorax or wide mediastinum. Radiology read in agreement. CT of the abdomen pelvis shows no acute abdominal abnormalities, collections or free air. Patient was reevaluated and updated on the negative workup. Spoke to her about the mild JAMES encouraged lots of fluids at home. States that she drinks fluids but also drinks a lot of coffee and I recommended water or electrolyte intake. Patient is having no symptoms at time of reevaluation. She stable for outpatient management. Patient discharged from the Emergency Department. I do not feel that the patient's evaluation reveals any acute reason for admission at this time. I instructed them to either follow-up with their primary care physician or promptly return to the Emergency Department for reevaluation should symptoms worsen or new symptoms develop. I explained what symptoms would indicate the need to return to the emergency department. Shared decision making was used. The patient voiced understanding of the treatment plan and is agreeable with it. Clinical impression Abdominal pain Chest pain History & Record Review Discussion w/independent historian: Patient Lab Data Attestation: I reviewed the patient's lab results. Labs: Laboratory Results - last 24 hr 05/31/25 22:40 WBC 14.0 H RBC 4.90 Hgb 14.2 Hct 43.5 MCV 88.8 MCH 29.0 MCHC 32.6 RDW Std Deviation 43.2 RDW Coeff of Yesi 13.2 Plt Count 263 MPV 9.9 Immature Gran % (Auto) 0.400 Neut % (Auto) 53.9 Lymph % (Auto) 34.5 [place] % (Auto) 7.0 Eos % (Auto) 3.7 Baso % (Auto) 0.5 Absolute Neuts (auto) 7.5 Absolute Lymphs (auto) 4.83 H Nucleated RBC % 0 Sodium 132 L Potassium 4.5 Chloride 102 Carbon Dioxide 20.5 L Anion Gap 10 BUN 22 H Creatinine 1.51 H Estim Creat Clear Calc 63.83 Est GFR (MDRD) Non-Af 40 L BUN/Creatinine Ratio 14.2 Glucose 185 H Calcium 9.2 Total Bilirubin 0.40 AST 26 ALT 30 Alkaline Phosphatase 109 H Troponin T High Sens 11 Total Protein 6.8 Albumin 4.1 Globulin 2.7 Albumin/Globulin Ratio 1.5 Lipase 19 Radiography Diagnostic Testing: Clinical Impression(s) from Imaging Studies Abdomen/Pelvis CT 05/31/25 22:12 IMPRESSION: Fatty hepatomegaly. No acute pelvi-abdominal abnormalities, collections or free air. [facility] 05/31/25 23:30 IMPRESSION: NO ACUTE FINDINGS. Reading Location: [address] Discharge Plan Triage Chief Complaint: Abd Pain ED Provider: Ivelisse Maurice Dx/Rx/DC Orders Clinical Impression: Abdominal pain Instructions: Abdominal Pain Prescriptions: No Action acetaminophen 500 MG tablet 500 - 1,000 mg PO Q6H PRN PRN (Reason: Pain) Patient Comments: PAIN/FEVER pravastatin 10 MG tablet 80 mg PO DAILY Patient Comments: CHOLESTEROL fluoxetine 20 MG tablet 20 mg PO DAILY Patient Comments: DEPRESSION ergocalciferol (vitamin D2) [Vitamin D2] 50,000 UNIT capsule 1,000 unit PO DAILY Patient Comments: SUPPLEMENT paliperidone [Invega] 3 MG tablet 9 mg PO QHS Patient Comments: PSYCH MED albuterol sulfate [Ventolin HFA] 1 INHALER inhaler 2 puff inhalation 4X/DAY PRN (Reason: Wheezing) Patient Comments: ASTHMA metformin 500 MG tablet,ER jody.retention 24 hr 1,000 mg PO DAILY levothyroxine 50 MCG tablet 75 mcg PO DAILY fenofibrate [Lofibra] 54 MG tablet 54 mg PO DAILY chlorpromazine 10 MG tablet 25 mg PO BID losartan 25 MG tablet 25 mg PO DAILY benztropine 2 MG tablet 1 mg PO BID pantoprazole 20 MG tablet 20 mg PO DAILY alprazolam 0.5 MG tablet 0.5 mg PO 4X/DAY PRN PRN (Reason: Anxiety) Rx Instructions: Pt takes 2 at bedtime budesonide 0.5 MG/2 ML suspension for nebulization 0.5 mg inhalation BID.RT prednisone 10 MG tablets,dose pack See Taper PO DAILY Qty: 30 0RF Taper: Prednisone Taper 40 mg DAILY@0800 for 3 Days and 0 Hour 30 mg DAILY@0800 for 3 Days and 0 Hour 20 mg DAILY@0800 for 3 Days and 0 Hour 10 mg DAILY@0800 for 3 Days and 0 Hour Rx Instructions: start AM 07/15/2018 Primary Care Provider: Jc Hsu Referrals: Jc Hsu MD [Primary Care Provider, Family Practice] - As soon as possible Activity Restrictions/Additional Instructions: Your evaluation in the Emergency Department did not reveal any acute reason for admission. However, I want to emphasize that you may be early in the course of a disease process or illness even if it is not present. For this reason you should follow-up within 24 hours for reevaluation with either your primary care physician or if necessary back here in the Emergency Department. You should return to the Emergency Department immediately if your symptoms worsen or new symptoms develop. Print Language: Arabic Disposition Disposition: Home, Self Care
[2025-05-31 23:03] LABS: Hematocrit 43.5 % (37-47); Hemoglobin 14.2 g/dL (12.0-15.0); Immature Granulocytes Count 0.050 X10^3/uL (0.0-0.0); Mean Corp Hgb Conc 32.6 g/dL (32-36); Mean Corpuscular Volume 88.8 fL (81-99); Mean Platelet Vol. 9.9 fl (6.2-12.0); NRBC Flagged by Analyzer 0 % (0-5); Platelet Count 263 K/mm3 (150-450); RBC Distribution Width CV 13.2 % (11.6-14.6); RBC Distribution Width SD 43.2 fl (35.1-43.9); Red Blood Count 4.90 M/mm3 (4.2-5.4); White Blood Count 14.0 K/mm3 (4.4-11.0)
[2025-05-31 23:16] LABS: AST(SGOT) 26 U/L (<=31); Alanine Aminotransfer ALT/SGPT 30 U/L (<=34); Albumin, Serum 4.1 g/dL (3.5-5.0); Alkaline Phosphatase 109 U/L (35-104); Anion Gap 10 (5-15); BUN 22 mg/dL (4-19); BUN/Creat Ratio 14.2 RATIO (10-20); Calcium,Total 9.2 mg/dL (7.6-11.0); Carbon Dioxide 20.5 mmol/L (21.0-32.0); Chloride 102 mmol/L (98-108); Estimated Creatinine Clearance 63.83 ml/min (50-250); Globulin 2.7 g/dL (2.2-4.2); Glucose 185 mg/dL (70-99); Lipase 19 U/L (13-75); Potassium 4.5 mmol/L (3.3-5.1); Troponin T High Sensitivity 11 ng/L (<=14)
--- NOTE | 2025-05-31 23:30 | RAD_ITS ---
PROCEDURE: CHEST PA AND LATERAL 05/31/2025 REASON FOR EXAM: LEFT SIDED CP TECHNIQUE: Procedure Code: RADCXR Modality: DX Procedure: CHEST PA AND LATERAL COMPARISON: 12/22/2022. FINDINGS: Right chest infusion port with tip terminating in the upper superior vena cava. The heart is normal in size. The lungs are clear. No acute osseous abnormalities. RAD/Chest PA and Lateral IMPRESSION: NO ACUTE FINDINGS. Reading Location: [id number]
[2025-06-01] VITALS: BP 94/64; O2SAT 98
[2025-06-01 00:03] LABS: Mucous, Urine 0 SEEN /hpf (<or=2+); Red Blood Cells-Urine 0 SEEN /hpf (0-5)
[2025-06-01 00:15] VITALS: BP 101/83; PULSE 74; RESP 18; TEMP 37; O2SAT 97
[2025-06-01 00:15] LABS: Color, Urine Yellow (Yellow); Glucose, Dipstick NEGATIVE (Normal); Ketone-Dipstick Negative (Negative); Specific Gravity, Urine 1.025 (1.002-1.030); Urine Bilirubin Dipstick Negative (Negative)
[2025-06-01 00:16] LABS: Leukocyte Esterase-Dipstick 25 /ul (Negative); Nitrite-Dipstick Negative (Negative); Occult Blood-Urine Negative /ul (Negative); Protein-Dipstick 15 mg/dl (Negative)
[2025-06-01 00:21] LABS: Squamous Epithelial Cells - UA 0-5 SEEN /hpf (5-10)
== END 2025-06-01 00:39 | disposition home or self-care (01) ==
PROVIDERS: Emergency Provider Student in an Organized Health Care Education/Training Program; PCP Family Medicine; Visit Provider Student in an Organized Health Care Education/Training Program
DX: R10.9 Unspecified abdominal pain (principal); I50.9 Heart failure, unspecified; J44.9 Chronic obstructive pulmonary disease, unspecified; E11.9 Type 2 diabetes mellitus without complications; Z90.710 Acquired absence of both cervix and uterus; Z86.73 Personal history of transient ischemic attack (TIA), and cerebral infarction without residual deficits; Z85.528 Personal history of other malignant neoplasm of kidney; Z90.5 Acquired absence of kidney; Z79.84 Long term (current) use of oral hypoglycemic drugs; Z79.51 Long term (current) use of inhaled steroids; Z90.49 Acquired absence of other specified parts of digestive tract; F17.210 Nicotine dependence, cigarettes, uncomplicated; R07.9 Chest pain, unspecified
CPT/HCPCS: 36591; 71046; 74177; 80053; 81001; 83690; 84484; 85025; 93005; 99285; Q9967; A4216